=== PATIENT | female | born 1935 | race Caucasian/White ===

== ENCOUNTER 2018-04-16 18:31 | Emergency (ER) | payer OTHER, BC ==
[2018-04-16] MEDS ORDERED: CLINDAMYCIN HCL 150 MG CAP ONE (20:04)
--- NOTE | 2018-04-16 20:52 | RAD REPORT ---
EXAM DESCRIPTION: Shahab Crews Left04/16/2018 8:31 pm CLINICAL HISTORY: Left leg pain status post injury FINDINGS: No fracture is seen. A radiopaque foreign body is not noted
[2018-04-16] MEDS ORDERED: TETANUS & DIPHTHERIA TOX,ADULT 0.5 ML VIAL ONE (21:17)
--- NOTE | 2018-04-16 21:25 | EDPHYS ---
Physician Documentation [facility] Name: Geri Guaman Age: 82 yrs Sex: Female : 1935 Arrival Date: 04/16/2018 Time: 18:32 Bed 14 Private MD: Sarina Osorio C ED Physician Anatoly William HPI: 04/16 21:15 This 82 yrs old Female presents to ER via Ambulatory with complaints of Dog gs Bite. 21:15 The patient was bitten on the left calf. Onset: The symptoms/episode began/occurred gs acutely, just prior to arrival. Animal information: The animal was reported to appear healthy. Animal's vaccinations are up to date. Animal control has been notified. Secondary to the bite the patient reports a puncture wound, that is deep. Associated signs and symptoms: Pertinent positives: pain at site, Pertinent negatives: erythema at site, fever, fluctuance, loss of consciousness, motor deficit, numbness distal to wound, suspected foreign body. Severity of symptoms: At their worst the symptoms were moderate, in the emergency department the symptoms are unchanged. The patient has experienced similar episodes in the past, a few times. Historical: - Allergies: 19:08 PENICILLINS; aj - Home Meds: 19:08 levothyroxine oral [Active]; carvedilol 25 mg oral tab 1 tab 2 times per day [Active]; aj olmesartan oral oral [Active]; nifedipine 30 mg Oral tr24 1 tab once daily [Active]; - PMHx: 19:08 Hypertension; Hypothyroidism; aj - PSHx: 19:08 None; aj - Immunization history:: Adult Immunizations up to date. - Social history:: Smoking status: Patient/guardian denies using tobacco. - Ebola Screening: : Patient negative for fever greater than or equal to 101.5 degrees Fahrenheit, and additional compatible Ebola Virus Disease symptoms Patient denies exposure to infectious person Patient denies travel to an Ebola-affected area in the 21 days before illness onset No symptoms or risks identified at this time. ROS: 21:15 All other systems are negative. gs Exam: 21:15 Neck: Trachea midline, no thyromegaly or masses palpated, and no cervical gs lymphadenopathy. Supple, full range of motion without nuchal rigidity, or vertebral point tenderness. No Meningismus. Chest/axilla: Normal chest wall appearance and motion. Nontender with no deformity. No lesions are appreciated. Cardiovascular: Regular rate and rhythm with a normal S1 and S2. No gallops, murmurs, or rubs. Normal PMI, no JVD. No pulse deficits. Respiratory: Lungs have equal breath sounds bilaterally, clear to auscultation and percussion. No rales, rhonchi or wheezes noted. No increased work of breathing, no retractions or nasal flaring. Abdomen/GI: Soft, non-tender, with normal bowel sounds. No distension or tympany. No guarding or rebound. No evidence of tenderness throughout. Back: No spinal tenderness. No costovertebral tenderness. Full range of motion. 21:15 Constitutional: The patient appears alert, awake, uncomfortable. 21:15 Musculoskeletal/extremity: Extremities: noted in the left calf: puncture, ROM: no acute changes, Circulation is intact in all extremities. Sensation intact. 21:15 Skin: injury, puncture(s), that are deep, of the left calf. Vital Signs: 19:08 BP 174 / 80; Pulse 75; Resp 15; Temp 98.4; Pulse Ox 96% on R/A; Weight 60.33 kg; Height aj 5 ft. 4 in. (162.56 cm); 19:43 BP 179 / 64; Pulse 65; Resp 18; Pulse Ox 97% on R/A; mg2 20:45 BP 178 / 68; Pulse 72; Resp 17; Pulse Ox 99% on R/A; bs1 21:45 BP 158 / 74; Pulse 80; Resp 16; Pulse Ox 99% on R/A; bs1 19:08 Body Mass Index 22.83 (60.33 kg, 162.56 cm) MDM: 19:49 Patient medically screened. 21:15 Data reviewed: vital signs, nurses notes. Counseling: I had a detailed discussion with the patient and/or guardian regarding: the historical points, exam findings, and any diagnostic results supporting the discharge/admit diagnosis, radiology results. 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 Exp: bs1 05/14/2020. Lot #: [id number]. } Route: IM; Site: left deltoid; 22:02 Follow up: Response: No adverse reaction bs1 Disposition: 04/16/18 21:25 Discharged to Home. Impression: Bitten by dog. - Condition is Stable. - Discharge Instructions: Animal Bite, [id number]. - Prescriptions for Clindamycin HCl 300 mg Oral Capsule - take 1 capsule by ORAL route every 8 hours for 7 days; 21 capsule. - Medication Reconciliation Form, Thank You Letter, Antibiotic Education, Prescription Opioid Use form. - Follow up: Private Physician; When: 2 - 3 days; Reason: Re-evaluation by your physician. Signatures: Dispatcher [employer] Karen Sage RN RN Anatoly Grayson MD MD gs Salazar, Brittany, RN RN bs1 Corrections: (The following items were deleted from the chart) 22:02 21:25 04/16/2018 21:25 Discharged to Home. Impression: Bitten by dog. Condition is bs1 Stable. Forms are Medication Reconciliation Form, Thank You Letter, Antibiotic Education, Prescription Opioid Use. Follow up: Private Physician; When: 2 - 3 days; Reason: Re-evaluation by your physician. gs
--- NOTE | 2018-04-16 21:25 | ER ---
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 Small puncture wound with controlled bleeding. Police report filed. Transition of care: patient was not received from another setting of care. Onset of symptoms was April 16, 2018. Risk Assessment: Do you want to hurt yourself or someone else? Patient reports no desire to harm self or others. Initial Sepsis Screen: Does the patient meet any 2 criteria? No. Patient's initial sepsis screen is negative. Does the patient have a suspected source of infection? No. Patient's initial sepsis screen is negative. Care prior to arrival: None. 19:05 Method Of Arrival: Ambulatory aj 19:05 Acuity: VASILE 4 aj Triage Assessment: 19:08 Bite description: bite sustained to left calf is from animal, was sustained 30-60 aj minutes ago. by a dog, animal information: vaccination(s) is unknown. General: Appears in no apparent distress. comfortable, Behavior is calm, cooperative, appropriate for age. Pain: Complains of pain in left calf. Neuro: Level of Consciousness is awake, alert, obeys commands, Oriented to person, place, time, situation, Appropriate for age. Respiratory: Airway is patent Respiratory effort is even, unlabored, Respiratory pattern is regular, symmetrical. Derm: Skin is intact, is healthy with good turgor, Skin is pink, warm \T\ dry. normal. Injury Description: Bite sustained to left calf caused by a dog, is from animal, was sustained 30-60 minutes ago. Historical: - Allergies: 19:08 PENICILLINS; aj - Home Meds: 19: levothyroxine oral [Active]; carvedilol 25 mg oral tab 1 tab 2 times per day [Active]; aj olmesartan oral oral [Active]; nifedipine 30 mg Oral tr24 1 tab once daily [Active]; - PMHx: 19:08 Hypertension; Hypothyroidism; aj - PSHx: 19:08 None; aj - Immunization history:: Adult Immunizations up to date. - Social history:: Smoking status: Patient/guardian denies using tobacco. - Ebola Screening: : Patient negative for fever greater than or equal to 101.5 degrees Fahrenheit, and additional compatible Ebola Virus Disease symptoms Patient denies exposure to infectious person Patient denies travel to an Ebola-affected area in the 21 days before illness onset No symptoms or risks identified at this time. Screenin:46 Abuse screen: Denies threats or abuse. Denies injuries from another. Nutritional bs1 screening: No deficits noted. Tuberculosis screening: No symptoms or risk factors identified. Fall Risk None identified. Assessment: 19:15 General: Appears in no apparent distress. uncomfortable, slender, well groomed, [facility] Behavior is calm, cooperative, appropriate for age. Pain: Complains of pain in left leg and left calf. Neuro: Level of Consciousness is awake, alert, obeys commands, Oriented to person, place, time, situation, Appropriate for age Facial symmetry appears normal. Cardiovascular: Denies chest pain, shortness of breath, Heart tones S1 S2 present Capillary refill < 3 seconds Patient's skin is warm and dry. Respiratory: Airway is patent Trachea midline Respiratory effort is even, unlabored, Respiratory pattern is regular, symmetrical, Breath sounds are clear bilaterally. GI: No signs and/or symptoms were reported involving the gastrointestinal system. : No signs and/or symptoms were reported regarding the genitourinary system. EENT: No signs and/or symptoms were reported regarding the EENT system. Derm: puncture wound noted to left calf, bleeding controlled. Derm: Bruising that is dark purple, on left leg and left calf. Musculoskeletal: Musculoskeletal: Circulation, motion, and sensation intact. Capillary refill < 3 seconds, Swelling present in left leg and left calf. 19:45 Reassessment: Patient/family state that a police report was done prior to arrival to [address], incident occurred approximately around [id number] in [facility]. 20:30 Reassessment: Patient appears in no apparent distress at this time. Patient and/or bs1 family updated on plan of care and expected duration. Pain level reassessed. Patient is alert, oriented x 3, equal unlabored respirations, skin warm/dry/pink. Updated patient/family on POC. 21:15 Reassessment: Cleansed patients left leg/calf with NS/Cholhexidine. Tolerated well. bs1 wrapped in gauze/kerlix. Clean, dry and intact. 21:40 Reassessment: Informed patient/family on discharge instructions/POC. keeping leg clean bs1 and dry, wrap daily, clean with water/antibacterial soap. Patient states feeling better. Patient states symptoms have improved. Vital Signs: 19:08 BP 174 / 80; Pulse 75; Resp 15; Temp 98.4; Pulse Ox 96% on R/A; Weight 60.33 kg; Height aj 5 ft. 4 in. (162.56 cm); 19:43 BP 179 / 64; Pulse 65; Resp 18; Pulse Ox 97% on R/A; mg2 20:45 BP 178 / 68; Pulse 72; Resp 17; Pulse Ox 99% on R/A; bs1 21:45 BP 158 / 74; Pulse 80; Resp 16; Pulse Ox 99% on R/A; bs1 19:08 Body Mass Index 22.83 (60.33 kg, 162.56 cm) ED Course: 18:32 Patient arrived in ED. mr 18:32 Sarina Osorio MD is Private Physician. mr 19:06 Triage completed. aj 19:08 Arm band placed on left wrist. Patient placed in an exam room. aj 19:12 Anatoly William MD is Attending Physician. gs 19:30 Patient has correct armband on for positive identification. Bed in low position. Call bs1 light in reach. Side rails up X 1. credit officer on. Pulse ox on. 20:26 X-ray completed. Portable x-ray completed in exam room. Patient tolerated procedure bb2 well. 20:27 Tib Fib Left XRAY In Process Unspecified. EDMS 21:18 Stacey Carreno, FABIAN is Primary Nurse. bs1 22:01 No provider procedures requiring assistance completed. Patient did not have IV access bs1 during this emergency room visit. 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 Exp: bs1 05/14/2020. Lot #: [id number]. } Route: IM; Site: left deltoid; 22:02 Follow up: Response: No adverse reaction bs1 Outcome: 21:25 Discharge ordered by . 22:01 Discharged to home ambulatory, with family. bs1 22:01 Condition: stable 22:01 Discharge instructions given to patient, family, Instructed on discharge instructions, follow up and referral plans. medication usage, Demonstrated understanding of instructions, follow-up care, medications, Prescriptions given X 1. 22:02 Patient left the ED. bs1 Signatures: Dispatcher [employer] EDKaren Carrera, RN RN Michelle Colby Gregory, MD MD gs Bock, Brittany bbStacey Mason, RN RN bs1 Mike Fernandez RN RN mg2
[2018-04-16 22:07] VITALS: TEMP 98.4
[2018-04-16 22:09] VITALS: O2SAT 99
[2018-04-16 22:10] VITALS: BP 158/74
== END 2018-04-16 22:02 | disposition home or self-care (01) ==
LOC: ER 18:31
DX: S81.852A Open bite, left lower leg, initial encounter (principal); W54.0XXA Bitten by dog, initial encounter; Y93.9 Activity, unspecified; Y92.9 Unspecified place or not applicable; Z23 Encounter for immunization; Z88.0 Allergy status to penicillin; I10 Essential (primary) hypertension; E03.9 Hypothyroidism, unspecified
CPT/HCPCS: 90714; 99284

== ENCOUNTER 2018-04-23 16:40 | Inpatient (IN) | payer OTHER, BC ==
[2018-04-23] MEDS ORDERED: ACETAMINOPHEN 500 MG TAB PO PRN (19:38)
[2018-04-23] MEDS ORDERED: Levofloxacin500mg IV 500 MG/100 ML BAG IV SCH (20:00)
[2018-04-23 20:39] LABS: Absolute Lymphocytes (CBC) 1.6 K/uL (0.7-4.9); Absolute Monocytes 0.6 K/uL (0.1-1.3); Absolute Neutrophil 3.4 K/uL (1.8-8.0); Basophils % 0.6 % (0-1.3); Eosinophils % 4.5 % (0-4.4); Hematocrit 39.4 % (36.0-45.0); Lymphocytes % 27.1 % (15.3-44.8); MCH 32.1 pg (27.0-35.0); Monocytes % 9.6 % (3.3-12.3); RBC Red Blood Cell Count 4.38 M/uL (3.86-4.86)
[2018-04-23 20:45] VITALS: BMI 23.6
[2018-04-23 20:58] LABS: Magnesium 2.3 mg/dL (1.8-2.4); Potassium 3.6 mmol/L (3.5-5.1)
[2018-04-23] MEDS ORDERED: CARVEDILOL 25 MG TAB PO ONE (21:12)
[2018-04-23] MEDS ORDERED: ONDANSETRON 4 MG/2 ML VIAL IV PRN (21:13)
[2018-04-23] MEDS ORDERED: MORPHINE 2 MG/ML SYR IV PRN (21:13)
[2018-04-23] MEDS: NA CHLORIDE 0.9% 1,000 ML IV SCH (22:17)
[2018-04-24] MEDS ORDERED: KCL 20 MEQ/100 mL IVPB 20 MEQ/100 ML BAG IV SCH (03:00)
--- NOTE | 2018-04-24 04:02 | HP ---
Date of Admission: 04/23/2018 Chief Complaint: Leg pain. History Of Present Illness: An 82-year-old female patient who was walking in her neighborhood about a week ago and this was on 04/16/2018 and her neighbor's dog came and ended up biting her on her left leg. She came into emergency room after days and this left leg wound was cleaned and dressing was a pplied and she was released to go home. Tetanus booster injection was given in emergency room. The patient came to see me with her 2 daughters on 04/16/2018. I did examine this area. What she had wa s very superficial wound, but she had some hematoma around it. She was advised to take antibiotic. I wanted to prescribe her Levaquin, but at that time the patient and patient's daughter they both did not feel comfortable taking Levaquin and they wanted some different antibiotic, so cefuroxime was pr escribed. Today, the patient was brought into office again by the patient's daughter because the pat queenie's granddaughter who is a nurse examined her leg yesterday and she was concerned about swelling, so the patient came in to see me today. After I saw her, I was concerned about this area also on the left leg and was concerned about possibility of abscess and she was sent to hospital immediately for ultrasound and radiologist called and discussed results with me. The patient has approximately 4 cm fluid collection in the area of concern and this could be either infected hematoma or abscess. The patient was brought back to office, results were discussed with her, and I did talk to Dr. Fernandez, general surgeon, and he evaluated the patient at his office today and recommended the patient to be a dmitted to hospital for incision and drainage and debridement of this area. Details were discussed w ith the patient and the patient's daughter regarding 2 possibilities, either it is infected hematoma or abscess. Allergies: TO PENICILLIN AND CODEINE. Medications: She takes carvedilol 25 mg 2 times a day, levothyroxine 75 mcg 1 tablet p.o. daily from Saturday through Saturday, none on Saturday or Saturday; nifedipine 30 mg p.o. daily, Benicar HCT 40/12.5 one p.o. daily, and she takes eye drops. Past Medical History: Significant for hypertension, hyperlipidemia, hypothyroidism, allergic rhiniti s, macular degeneration, insomnia. Past Surgical History: Negative. Family History: Significant for hypertension and glaucoma. Social History: Negative for smoking or alcohol use. Review of Systems: Dermatology: As mentioned above. Musculoskeletal: As mentioned above. All other systems reviewed and negative. Physical Examination: Vital Signs: When she came into office today, height 5 feet 4 inches, weight 138.6 pounds, blood pre ssure 153/79, pulse 60, temperature 97.8, respiratory rate 16. General: Awake, alert, oriented, not in distress. HEENT: Head atraumatic, normocephalic. Conjunctivae nonerythematous. Sclerae white. Mouth, no thr ush or edema noted. Ears/Nose, no mass, lesion, discharge noted. Neck: Supple. No JVD, lymph nodes, bruit, thyromegaly noted. Lungs: Bilateral good equal air entry. Clear to auscultation. No rhonchi. No rales. Heart: Normal heart sounds, no murmur or gallop. Abdomen: Soft, bowel sounds normal. No guarding, rigidity, tenderness, mass, hepatosplenomegaly, dis tention, or bruit noted. Extremities: Left calf has approximately 4-5 cm pink, warm, tender, slightly fluctuant swelling. So me bruising around this area, mostly in the upper part. Skin: No rash, ulcer, cellulitis. Lymphatics: No lymph node enlargement in neck, supraclavicular, infraclavicular region. Neuro: No focal neurological deficit. Chest: Unremarkable. External Genitalia: Deferred. Rectal: Deferred. Laboratory Data: White count 5.9, hemoglobin 14.1, platelets 229. Sodium 140, potassium 3.6, chlori de 103, bicarb 33, BUN 20, creatinine 0.80, glucose 86, magnesium 2.3. Her left leg ultrasound shows approximately 4 cm area of fluid collection in the left calf. Impression: 1.Abscess, left leg. 2.Rule out infected hematoma, left leg. 3.Hypertension. 4.Hyperlipidemia. 5.Hypothyroidism. 6.Macular degeneration of eyes. Plan: Admit the patient to hospital for further evaluation and management of this problem. [facility] is appropriate for inpatient and is expected to spend 2 midnights in hospital. We will go ahead and keep her n.p.o. after midnight. Empiric antibiotic will be given per order. Home medications wi ll be continued per order. We will go ahead and give her IV fluid, IV Levaquin. Pain medication yvon l be ordered. I will see her tomorrow for followup. Consult Dr. Fernandez, and the patient will have surgery tomorrow for her left leg abscess versus infected hematoma. Details and plan of treatment d iscussed with the patient and her daughter. HEMANT/MOJGAN Voice ID: [id number]
[2018-04-24] MEDS ORDERED: CARVEDILOL 25 MG TAB PO SCH (06:00)
[2018-04-24] MEDS ORDERED: PROPOFOL 200 MG/20 ML VIAL IV ONE (07:08)
[2018-04-24] MEDS ORDERED: FENTANYL CITR 100 MCG/2 ML ONE (07:08)
[2018-04-24] MEDS ORDERED: EPHEDRINE SULF 50 MG/10 ML SYR ONE (07:59)
[2018-04-24] MEDS ORDERED: ONDANSETRON HCL 40 MG/20 ML VIAL ONE (07:59)
[2018-04-24] MEDS ORDERED: PNEUMOCOCCAL VACCINE 0.5 ML IMVAC ONE (08:00)
[2018-04-24] MEDS ORDERED: GLYCOPYRROLATE 0.2 MG/ML SYR ONE (08:08)
[2018-04-24] MEDS ORDERED: ATROPINE SULF 1 MG/10 ML SYR IV ONE (08:11)
--- NOTE | 2018-04-24 08:18 | P.BOP ---
Preoperative diagnosis: traumatic puncture wound left leg (dog bite), hematoma, abscess Postoperative diagnosis: same Primary procedure: left leg wound exploration, subQ debridement with drainage of abscess Secondary procedure: 15 x 7 x 1 cm, evacuation of hematoma Estimated blood loss: <10cc Specimen: deviltalized tissue, culture Findings: as above Anesthesia: General Complications: None Transferred to: Recovery Room Condition: Good
[2018-04-24 08:43] VITALS: O2SAT 96
[2018-04-24] MEDS ORDERED: NIFEDIPINE XL 30 MG TABLET PO SCH (09:00)
[2018-04-24] MEDS ORDERED: VALSARTAN 160 MG TAB PO SCH (09:00)
[2018-04-24] MEDS ORDERED: VALSARTAN 80 MG TAB PO SCH (09:00)
[2018-04-24] MEDS ORDERED: hydroCHLOROthiazide 12.5 MG CAP PO SCH (09:00)
[2018-04-24] MEDS: NA CHLORIDE 0.9% 1,000 ML IV SCH (10:50)
--- NOTE | 2018-04-24 11:59 | OP ---
Date of Procedure: 04/24/2018 Surgeon: Phill Fernandez MD Preoperative Diagnosis: Traumatic puncture wound, left leg, dog bite with infected hematoma, abscess , devitalized tissue. Postoperative Diagnosis: Traumatic puncture wound, left leg, dog bite with infected hematoma, absces s, devitalized tissue. Procedure: Left leg wound exploration, subcutaneous debridement with drainage of an abscess and evac uation of hematoma about 15 x 7 x 1 cm. Findings: Devitalized tissue, infected hematoma with abscess, and old blood, and then cultures were obtained. Anesthesia: General plus local. Indications: This is a case of an 82-year-old patient involved in a dog bite several days ago with h ematoma, puncture wounds, and multiple devitalized tissue. She tried antibiotics at home, but it did not improve, so yesterday her primary doctor asked me to see if we can do a surgical debridement of the area, evacuation of hematoma, since cellulitis was not improving. The patient was admitted to [facility] and started on IV antibiotics. She was fully explained the benefits, alternatives, and ri sks of I and D of an abscess with evacuation of hematoma and debridement of the devitalized tissue. With benefits, alternatives, and risks including, but not limited to infection, bleeding, damage to a djacent structures, anesthesia complication, nonhealing wound, MD, and even . She also understa nds this may not relieve any symptoms. She might need more than one surgical intervention. She unde rstood, signed a consent. The area of concern was marked by me and the patient in the holding room. Description Of Procedure: The patient was brought to the operating room and placed in the supine pos ition. A time-out was called. The patient was placed in lateral decubitus position with proper prot ection. Left leg was prepped and draped in a sterile fashion. An incision was made in the skin in a wedge fashion to include all the vitalized tissue and multiple lacerations on the area that looked i nfected. That led us into a hematoma that was combined with an abscess. The hematoma was evacuated. The abscess was with purulent discharge. The purulent discharge was addressed and the loculation w ere explored opened. Hemostasis obtained. Subcutaneous debridement was done until good tissue was f ound. The area was irrigated and hemostasis obtained and packed with wet-to-dry dressing. The patie nt tolerated the procedure well. The patient was sent to recovery room in stable condition. MUSA/MOJGAN Voice ID: [id number] Report ID: [id number]
[2018-04-24 12:17] VITALS: BP 149/58; TEMP 98.3
--- NOTE | 2018-04-26 02:26 | DS ---
Date of Discharge: 04/24/2018 Disposition: Discharged to go home. Physical Examination: HEENT: Unremarkable. Lungs: Clear to auscultation. Heart: Sounds normal. Abdomen: Soft. Bowel sounds normal. No guarding, rigidity, tenderness, or distention. Extremities: No leg edema. Left leg dressing present. Discharge Medications And Instructions: 1.Continue all prior home medications. 2.Take Levaquin 500 mg p.o. daily as prescribed prior to this admission. 3.Tylenol 500 mg 1 tablet by mouth 4 times a day as needed for pain. 4.May use tramadol 50 mg 1 tablet by mouth 4 times a day as needed for pain and prescription for 15 tablet given to patient's daughter and to use it only if she needs it as patient does not think she w ill need stronger pain medication. 5.Follow up with Dr. Fernandez per his instruction and follow up at my office in 2 weeks and wound ca re dressing changes as per instruction from Dr. Fernandez. Hospital Course: An 82-year-old female patient, admitted to hospital with problem with left leg pain . The patient had dog bite approximately a week ago and she received oral antibiotic cefuroxime, whi ch she did not improve and came into office with concerns about pain, swelling, redness, and upon fur ther evaluation also concerned about possibility of fluid collections and abscess, so stat ultrasound of leg was done, which came back positive for 4 cm fluid collection. This could be either infected hematoma or it could be abscess after Dr. Fernandez was consulted at his office. The patient was admi tted to the hospital and the patient received IV Levaquin and today she had surgery done by Dr. Sherri gonzalez for incision and drainage and debridement of this area, and after surgery, she was discharged to go home in stable condition. Final Diagnoses: 1.Abscess, left leg. 2.Rule out infected hematoma, left leg. 3.Hypertension. 4.Hyperlipidemia. 5.Hypothyroidism. 6.Macular degeneration of eyes. HEMANT/MODL Voice ID: [id number] Report ID: [id number]
== END 2018-04-24 13:59 | disposition home health service (06) | DRG 603 ==
LOC: 4TH 18:45
PROVIDERS: ADMIT Internal Medicine; ATTEND Internal Medicine
PROC: 0J9P3ZZ Drainage of Left Lower Leg Subcutaneous Tissue and Fascia, Percutaneous Approach (ICD-10-PCS; 2018-04-24)
PROC: 0Y9B3ZZ Drainage of Left Lower Extremity, Percutaneous Approach (ICD-10-PCS; 2018-04-24)
PROC: 0JDP3ZZ Extraction of Left Lower Leg Subcutaneous Tissue and Fascia, Percutaneous Approach (ICD-10-PCS; principal; 2018-04-24 07:30)
DX: L02.416 Cutaneous abscess of left lower limb (principal); S81.852A Open bite, left lower leg, initial encounter; I10 Essential (primary) hypertension; E78.5 Hyperlipidemia, unspecified; E03.9 Hypothyroidism, unspecified; H35.30 Unspecified macular degeneration; Z88.0 Allergy status to penicillin
CPT/HCPCS: 36415; 76881; 80048; 83735; 85025; 87070; 87075; 87205; 88304; J2405; J3010; J7030

== ENCOUNTER 2020-11-29 18:53 | Observation (INO) | payer OTHER, BC ==
[2020-11-29 19:44] VITALS: BMI 25.6
[2020-11-29 21:35] LABS: Absolute Lymphocytes (CBC) 1.4 K/uL (0.7-4.9); Basophils % 0.3 % (0-1.3); Lymphocytes % 18.8 % (15.3-44.8); MPV 7.7 fL (7.6-11.3); RBC Red Blood Cell Count 4.05 M/uL (3.86-4.86)
[2020-11-29] MEDS ORDERED: NA CHLORIDE 0.9% 1,000 ML IV SCH (22:00)
[2020-11-29 22:03] LABS: Albumin 3.4 g/dL (3.4-5.0); Bilirubin Total 0.7 mg/dL (0.2-1.0); Potassium 3.1 mmol/L (3.5-5.1); Protein, Total 6.5 g/dL (6.4-8.2); Thyroid Stimulating Hormone 0.882 uIU/mL (0.360-3.740); Troponin I 0.2 ng/mL (0.0-0.045)
[2020-11-29] MEDS ORDERED: ENOXAPARIN 60 MG/0.6 ML SQ ONE (23:06)
[2020-11-30] MEDS ORDERED: LEVOTHYROXINE 0.075 MG PO SCH (06:00)
[2020-11-30 06:30] LABS: BUN Blood Urea Nitrogen 16 mg/dL (7-18); Bicarbonate 28 mmol/L (21-32); Glucose Level 100 mg/dL (74-106); Sodium Level 137 mmol/L (136-145); Troponin I 0.12 ng/mL (0.0-0.045)
[2020-11-30 06:32] LABS: Potassium 2.7 mmol/L (3.5-5.1)
[2020-11-30] MEDS ORDERED: NA CHLORIDE 0.9% 1,000 ML IV SCH (07:05)
--- NOTE | 2020-11-30 08:06 | HP ---
Date of Admission: 11/29/2020 Chief Complaint: Fainting episode. History Of Present Illness: This is an 85-year-old very pleasant female patient who lives at home by herself, was brought into office today by her daughter after she had a fainting episode today. The patient reports that since the weather was so good, she decided to go for walk outside [facility] and she had little bit feeling of shortness of breath, but denies any chest pain or any palpita tion type of feeling, but subsequently she decided to continue to walk but all of a sudden without an y prior warning or prior symptoms, she had fainting episode and she fell forward ended up hitting her chin on to the concrete floor and hence bruising on her hands. Neighbor saw her and the patient's d troyhter was contacted and later on, daughter brought her to my office. She denies any fever, chills, nausea, vomiting. No diarrhea. No blood in stool or blood in the urine. No chest pain. Allergies: TO PENICILLIN CAUSING RASH AND CODEINE CAUSING DIZZINESS. Medications: Amlodipine 5 mg daily in the morning, carvedilol 25 mg 2 times a day, olmesartan/hydroc hlorothiazide 40/12.5 takes 1 tablet by mouth daily, levothyroxine 75 mcg daily, and she takes some e yedrops, which is timolol and latanoprost. Review of Systems: Cardiovascular: As mentioned above. Respiratory: As mentioned above. Constitutional: Complaining of some generalized weakness. All other systems reviewed and negative. Past Medical History: Significant for hypothyroidism, hypertension, hyperlipidemia, leg edema, and l umbar spondylosis. Past Surgical History: Negative. Family History: Father and mother both had hypertension. Social History: Negative for smoking and alcohol use. Physical Examination: Initial vital signs: Upon admission, temperature 99.6, pulse 67, respiratory rate 18, blood pressure 161/71, oxygen saturation 96%. Height 5 feet 2 inches, weight 140 pounds. General: Awake, alert, oriented, not in distress. HEENT: On the face examination has a small area of bruising on her chin. No open wound noted. Ther e is a pinpoint area over the chin that is where she had a tiny laceration and had some bleeding afte r the fall, but there was no active bleeding noted when I saw her. Neck: Supple. No JVD, lymph nodes, bruit, thyromegaly noted. Lungs: Bilateral good equal air entry. Clear to auscultation. No rhonchi. No rales. Heart: Presence of systolic murmur. No gallop. Abdomen: Soft, bowel sounds normal. No guarding, rigidity, tenderness, mass, hepatosplenomegaly, dis tention, or bruit noted. Extremities: No leg edema. No calf tenderness. Skin: Reveals presence of bruising on her palm of her hand. Lymphatics: No lymph node enlargement in neck, supraclavicular, infraclavicular region. Neuro: No focal neurological deficit. Chest: Unremarkable. External Genitalia: Deferred. Rectal: Deferred. Laboratory Data: Chest x-ray no acute cardiopulmonary changes. CAT scan of the head was done withou t contrast, which came back negative for any acute intracranial changes. White count 7.5, hemoglobin 12.9, platelets 202. Sodium 137, potassium 3.1, chloride 102, bicarb 27, BUN 21, creatinine 0.71, g lucose 101. D-dimer elevated at 1816. Troponin 0.20. Procalcitonin less than 0.05. Liver function tests normal. TSH 0.882. Impression: 1.Syncope. 2.Hypokalemia. 3.Hypertension. 4.Hypothyroidism. 5.Hyperlipidemia. 6.Lumbar spondylosis. Plan: We will admit patient to hospital for further evaluation and management of this problem. The patient will be admitted to telemetry. We will monitor her for any kind of cardiac arrhythmia. Repl kevin electrolyte, which is potassium per protocol. We will repeat blood work tomorrow morning includi ng her electrolytes as well as cardiac enzymes will be repeated in the morning. Troponin is slightly elevated. D-dimer is elevated and we need to rule out any possibility of underlying pulmonary embol ism as patient started to have some shortness of breath and then had this syncopal episode. We will get a CT scan of the chest per PE protocol and 1 dose of Lovenox 60 subcu was ordered to be given ton ight while waiting on the further workup. We will also need to rule out any critical aortic stenosis . Echo with Doppler was ordered. We will get cardiology consult tomorrow and details of plan of linda atment was discussed with the patient and the patient's daughter. HEMANT/MODL Voice ID: [id number]
[2020-11-30] MEDS: KCL 20 MEQ/100 mL IVPB 20 MEQ/100 ML BAG IV SCH ×2 (08:27→09:00)
[2020-11-30 10:29] VITALS: O2SAT 93
--- NOTE | 2020-11-30 10:29 | RAD REPORT ---
EXAM DESCRIPTION: RAD - Chest Pa And Lat (2 Views) - 11/29/2020 9:57 pm CLINICAL HISTORY: Syncope. COMPARISON: None. TECHNIQUE: Two views: PA and lateral chest radiograph(s). FINDINGS: Moderate perihilar interstitial thickening. No confluent infiltrate. No pleural effusion. No pneumothorax. Nonenlarged cardiomediastinal silhouette. No significant osseous abnormality. IMPRESSION: Moderate perihilar interstitial thickening. Electronically signed by: Leia Krishnan MD 11/29/2020 10:04 PM CDT Due to temporary technical issues with the PACS/Fluency reporting system, reports are being signed by the in house radiologist without review as a courtesy to ensure prompt reporting. The interpreting r adiologist is fully responsible for the content of the report.
--- NOTE | 2020-11-30 10:31 | RAD REPORT ---
EXAM DESCRIPTION: CT - Head Brain Wo Cont - 11/30/2020 6:59 am CLINICAL HISTORY: The patient is 85 years old and is Female; syncope TECHNIQUE: Axial computed tomography images of the head/brain without intravenous contrast. Sagitt al and coronal reformatted images were created and reviewed. This CT exam was performed using one o r more of the following dose reduction techniques: automated exposure control, adjustment of the mA and/or kV according to patient size, and/or use of iterative reconstruction technique. COMPARISON: No relevant prior studies available. FINDINGS: BRAIN: Diffuse cerebral atrophy is noted. There are nonspecific periventricular white ma tter changes, which are likely related to chronic small vessel disease. The gaxiola-white differentiatio n is maintained. There are no extra-axial fluid collections or acute hemorrhage. VENTRICLES: There is diffuse prominence of the ventricles, which is likely related to central at rophy. BONES/JOINTS: No acute fracture. SOFT TISSUES: Unremarkable. SINUSES: Unremarkable as visualized. No acute sinusitis. MASTOID AIR CELLS: Unremarkable as visualized. No mastoid effusion. ORBITS: Unremarkable as visualized. IMPRESSION: 1. No acute intracranial findings visualized. 2. Nonspecific periventricular white matter changes, likely related to chronic small vessel disease . 3. Diffuse cerebral atrophy. Electronically signed by: Jessica Rivers MD 11/29/2020 10:45 PM CDT Due to temporary technical issues with the PACS/Fluency reporting system, reports are being signed by the in house radiologist without review as a courtesy to ensure prompt reporting. The interpreting r adiologist is fully responsible for the content of the report.
--- NOTE | 2020-11-30 10:36 | RAD REPORT ---
EXAM DESCRIPTION: CT - Chest For Pe Angio - 11/30/2020 6:56 am CLINICAL HISTORY: The patient is 85 years old and is Female; syncope, rule out PE TECHNIQUE: Axial computed tomographic angiography images of the chest with intravenous contrast. S agittal and coronal reformatted images were created and reviewed. This CT exam was performed using one or more of the following dose reduction techniques: automated exposure control, adjustment of t he mA and/or kV according to patient size, and/or use of iterative reconstruction technique. MIP re constructed images were created and reviewed. COMPARISON: No relevant prior studies available. FINDINGS: Pulmonary arteries: Unremarkable. No pulmonary embolism. Aorta: Scattered atherosclerotic vascular calcifications. No thoracic aortic aneurysm. Lungs: Calcified granuloma in the left lung. No mass. Pleural space: Unremarkable. No significant effusion. No pneumothorax. Heart: Unremarkable. No cardiomegaly. No significant pericardial effusion. No evidence of RV dysfunction. Thyroid: Coarse calcification within the left thyroid. Suggestion of a 9 mm high density or calc ified nodule in the right thyroid. ACR White Paper guidelines (Bruce JK, et al. JACR 2015;12(2):14 3-50) suggest further evaluation with thyroid ultrasound. Bones/joints: No acute fracture. No dislocation. Soft tissues: Calcifications within the breast tissue. Lymph nodes: Unremarkable. No enlarged lymph nodes. IMPRESSION: No acute finding. No evidence of pulmonary embolism. Electronically signed by: Celio Diop MD 11/30/2020 6:35 AM CDT Due to temporary technical issues with the PACS/Fluency reporting system, reports are being signed by the in house radiologist without review as a courtesy to ensure prompt reporting. The interpreting r adiologist is fully responsible for the content of the report.
[2020-11-30] MEDS ORDERED: POTASSIUM CL SA 10 MEQ TAB PO ONE (11:00)
--- NOTE | 2020-11-30 11:09 | RAD REPORT ---
EXAM DESCRIPTION: USExtrem Venous W Compress Bil11/30/2020 9:08 am CLINICAL HISTORY: Leg swelling and pain COMPARISON: none FINDINGS: The common femoral, superficial femoral, popliteal and posterior tibial veins bilaterally are compressible and demonstrate augmentation. Doppler demonstrates good flow. IMPRESSION: No evidence of deep venous thrombosis involving either lower extremity.
[2020-11-30 12:34] LABS: Urine Appearance CLEAR (Clear); Urine Bilirubin NEGATIVE (Negataive); Urine Blood 1+ (Negative); Urine Color YELLOW (Yellow); Urine Glucose NEGATIVE (Negative); Urine Protein NEGATIVE (Negative); Urine Specific Gravity >=1.030 (1.005-1.030); Urine Urobilinogen 0.2 mg/dL (0.2-1.0)
[2020-11-30 12:44] LABS: Urine Bacteria 20-50 /HPF (<20); Urine RBC <5 /HPF (NONE SEEN)
--- NOTE | 2020-11-30 12:48 | EKG ---
Test Date: 2020-11-29 Test Time: 19:46:22 [employer] Instructor: LESTER MEASUREMENT RESULTS: Intervals: Rate: 64 TN: 196 QRSD: 84 QT: 432 QTc: 445 [place]: P: 59 TN: 196 QRS: -28 T: 57 INTERPRETIVE STATEMENTS: Normal sinus rhythm Normal ECG Compared to ECG 12/05/2011 15:34:45 Sinus bradycardia no longer present Left-axis deviation no longer present Electronically Signed On 11-30-20 12:45:31 CDT by Polo Brothers
--- NOTE | 2020-11-30 13:01 | ECHO ---
HEIGHT: 5 ft 2 in WEIGHT: 140 lb 0 oz DATE OF STUDY: 11/30/[address]: Natan Osorio MD 2-DIMENSIONAL: YES M.MODE: YES DOPPLER: YES COLOR FLOW: YES TDS: NO PORTABLE: NO DEFINITY: NO BUBBLE STUDY: NO DIAGNOSIS: SYNCOPE CARDIAC HISTORY: CATHERIZATION: NO SURGERY: NO PROSTHETIC VALVE: NO PACEMAKER: NO MEASUREMENTS (cm) DIASTOLIC (NORMALS) SYSTOLIC (NORMALS) IVSd 1.2 (0.6-1.2) LA Diam 3.0 (1.9-4.0) LVEF 72% LVIDd 3.6 (3.5-5.7) LVIDs 2.1 (2.0-3.5) %FS 41% LVPWd 1.0 (0.6-1.2) Ao Diam 2.6 (2.0-3.7) 2 DIMENSIONAL ASSESSMENT: RIGHT ATRIUM: NORMAL LEFT ATRIUM: NORMAL RIGHT VENTRICLE: NORMAL LEFT VENTRICLE: NORMAL TRICUSPID VALVE: NORMAL MITRAL VALVE: MITRAL ANNULAR CALCIFICATION PULMONIC VALVE: NORMAL AORTIC VALVE: MILD STENOSIS PERICARDIAL EFFUSION: NONE AORTIC ROOT: NORMAL LEFT VENTRICULAR WALL MOTION: NORMAL DOPPLER/COLOR FLOW: MILD AORTIC STENOSIS. AORTIC VALVE AREA 1.8 CENTIMETERS SQUARED. MITRAL ANNULAR CALCIFICATION. COMMENTS: MILD AORTIC STENOSIS. AORTIC VALVE AREA 1.8 CENTIMETERS SQUARED. MITRAL ANNULAR CALCIFICATION. NO WALL MOTION ABNORMALITY. NORMAL LEFT VENTRICULAR SIZE AND FUNCTION. NO EFFUSION. TECHNOLOGIST: Sharon HUNTER
--- NOTE | 2020-11-30 13:28 | RAD REPORT ---
EXAM DESCRIPTION: - CP - 11/30/2020 1:16 pm CLINICAL HISTORY: syncope COMPARISON: No comparisons TECHNIQUE: Real-time sonographic evaluation of bilateral carotid and vertebral systems was performed . Arnold scale and Doppler interrogation were performed with waveform tracing bilaterally. FINDINGS: Normal high resistance waveforms are noted in both external carotid arteries. The common c arotid arteries and internal carotid arteries show normal low resistance waveforms. Calcified and noncalcified plaquing changes are present in the bilateral carotid bulbs and proximal i nternal carotid arteries. Visually there is no significant degree of luminal narrowing. No dissection is seen. Peak systolic and end-diastolic velocity values fall within a normal range. ICA/ CCA ratio 1.7 on the right is elevated though this is not believed be the result of a hemodynamically significa nt stenosis. ICA/CCA ratio is 1.2 on the left common normal. Antegrade flow seen in both vertebral arteries. Velocity values and ratios were recorded and are retained in the patient's imaging records. IMPRESSION: Bilateral bulb and proximal ICA calcified plaquing changes. Visually there is no signifi cant luminal narrowing. No evidence of a hemodynamically significant stenosis.
[2020-11-30] MEDS ORDERED: levoFLOXacin 500 MG TAB PO ONE (18:59)
[2020-11-30] MEDS ORDERED: HOME MED 1 EA UNK (Latanoprost/Pf [Latanoprost 0.005% Eye Drop] 7.5 ML Drops) OPTH SCH (21:00)
[2020-11-30 21:27] VITALS: BP 135/64; TEMP 99.4
--- NOTE | 2020-12-01 04:28 | DS ---
Date of Discharge: 11/30/2020 Disposition: Discharged to go home. Physical Examination: HEENT: Unremarkable except examination of change shows area of bruising. No active bleeding. Lungs: Clear to auscultation. Heart: Heart sounds normal. Abdomen: Soft, bowel sounds normal. No guarding, rigidity, tenderness, distention. Extremities: N o leg edema. Laboratory Data: Yesterday, sodium 137, potassium 3.1, chloride 102, bicarb 27, BUN 21, creatinine 0 .71, glucose 101. Liver function tests unremarkable. Troponin 0.20. Today, troponin 0.12. Procalc itonin less than 0.05. TSH 0.882. Today, sodium 137, potassium 2.7, chloride 104, bicarb 28, BUN 16 , creatinine 0.61, glucose 100. After potassium was corrected last potassium today was 3.7 at 5 p.m. White count yesterday was 7.5, hemoglobin 12.9, platelets 202. D-dimer was 1816. Urinalysis abnor mal consistent with urinary tract infection. COVID-19 test was not done because the patient refused it. Chest x-ray, no acute cardiopulmonary changes. CAT scan of the chest, head was negative for any acute intracranial changes. CT scan of the chest per PE protocol was negative for pulmonary embolis m and carotid Doppler bilateral carotid artery plaquing, no evidence of hemodynamically significant s tenotic lesion. Echocardiogram shows mild aortic stenosis as per my discussion with Dr. Brothers. Discharge Medications And Instructions: 1.Continue all prior home medication except stop amlodipine, stop olmesartan/hydrochlorothiazide. 2.Follow up at my office tomorrow afternoon. Final Diagnoses: 1.Syncope. 2.Hypokalemia. 3.Urinary tract infection. 4.Hypertension. 5.Hypothyroidism. 6.Aortic stenosis, mild. 7.Bilateral carotid artery disease. Hospital Course: 85-year-old female patient admitted to the hospital with shortness of breath and sy ncope. Please see dictated H and P for more information. After patient was evaluated yesterday at [facility], she was admitted to the hospital. Initial evaluation revealed hypokalemia and the patient was given IV fluid hydration. Potassium was corrected with electrolyte replacement protocol. Cardiolog y consultation was requested from Dr. Brothers and he tried to see patient 2 different times, but she was downstairs in Radiology Department getting some tests done, so he did not have opportunity to see her, but he will see her on outpatient basis as per my discussion with him. He did review her echoc ardiogram and he is planning to do a 1 week Holter monitor on an outpatient basis. The patient's spike ous Doppler of leg was negative for DVT. Overall, her condition has remained stable. She has not re ceived any antihypertensive medications since hospital admission. One dose of Levaquin 500 mg p.o. w as ordered this evening prior to discharge and I did try to call the patient's daughter to discuss al l the details about the test results and plan of treatment, but I was not able to contact the patient 's daughter. The patient is medically stable for discharge and I will see her tomorrow at office. HEMANT/MODL Voice ID: [id number] Report ID: [id number]
--- NOTE | 2020-12-01 14:18 | CON ---
Date of Consultation: 11/30/2020 Reason For Consultation: Syncope. History Of Present Illness: Ms. Guaman is an 85-year-old woman, who has a history of hypertension, hypercholesterolemia, leg edema, lumbar spondylosis, and hypothyroidism. The patient lives at home b y herself. She was brought today by her daughter who stated she had a fainting episode. She did hav e some shortness of breath, some mild exertion without any chest pain or palpitation, but she suddenl y had a syncopal episode where she fell forward hitting her chin on the concrete and she bruised her hands on the fence. The patient denied any fever or chills or nausea or vomiting. She denied palpit ation. She denied diarrhea. She denied any PND, orthopnea. There were no seizure activities that w ere witnessed by anyone. Past Medical History: As stated above. Allergies: SHE IS ALLERGIC TO PENICILLIN AND CODEINE. Review of Systems: Negative. Social History: Negative. Family History: Noncontributory. Medications: At home include carvedilol 25 mg b.i.d. She takes amlodipine 5 mg daily. She takes ol mesartan/hydrochlorothiazide 40/12.5 mg daily. She takes levothyroxine 75 mcg daily. She takes aten olol also. Physical Examination: Vital Signs: Stable. She was afebrile. HEENT: Negative. Neck: Supple without any bruit, lymphadenopathy, JVD, or thyromegaly. Chest: Clear to auscultation and percussion. Cardiac: Revealed a regular rhythm and rate. No gallops or rubs. She had a 2/6 systolic ejection m urmur at the third intercostal space that radiated to the carotid. There was an S4 gallops. Abdomen: Benign. Extremities: Revealed no clubbing, cyanosis, or edema. Laboratory Data: Her laboratory evaluation showed a D-dimer of 1816 and potassium was 2.7. Her trop onin is 0.12. She did have what may have been UTI as well. Impression And Plan: 1.Syncope. 2.Possible urinary tract infection. 3.Elevated D-dimer. 4.Elevated troponin. 5.Hypertension. 6.Hypokalemia. 7.Hypothyroidism. The patient has already had an echocardiogram that showed mild aortic stenosis of 1.8 sq cm. She had a carotid Doppler that was unremarkable. Her chest x-ray showed no acute proces s. She had a CT angiogram of the chest that showed no pulmonary embolus. She had an extremity venou s Doppler that was negative for deep venous thrombosis. I truly believe Ms. Guaman had orthostatic hypotension causing her syncope. Certainly with her hypokalemia, she could have had an arrhythmia as well. Nevertheless, I would definitely change her medical regimen and this was discussed with Dr. Sarina julio in details. I would continue the carvedilol, maybe take her off the amlodipine, discontinue her hydrochlorothiazide and see how she does. I will make arrangements for her to see me in the office i n the near future and make sure she has a 7-day event monitor to rule out sick sinus syndrome. The p atient can go home whenever it is okay with Dr. Osorio. MAXIMO/MOJGAN Voice ID: [id number] Report ID: [id number]
== END 2020-11-30 20:00 | disposition home or self-care (01) ==
LOC: 2ND 18:53
PROVIDERS: ADMIT Internal Medicine; ATTEND Internal Medicine
DX: R55 Syncope and collapse (principal); I10 Essential (primary) hypertension; E78.00 Pure hypercholesterolemia, unspecified; M47.816 Spondylosis without myelopathy or radiculopathy, lumbar region; R79.1 Abnormal coagulation profile; R77.8 Other specified abnormalities of plasma proteins; E87.6 Hypokalemia; N39.0 Urinary tract infection, site not specified; I35.0 Nonrheumatic aortic (valve) stenosis; I65.23 Occlusion and stenosis of bilateral carotid arteries; E78.5 Hyperlipidemia, unspecified
CPT/HCPCS: 36415; 70450; 71046; 71275; 80048; 80053; 81001; 82550; 82553; 83735; 83880; 84132; 84145; 84443; 84484; 85025; 85379; 87086; 87088; 93005; 93306; 93880; 93970; G0378; G0379; J1650; J3480; J7030; Q9967